=== PATIENT | male | born 1950 | race Caucasian/White ===

== ENCOUNTER 2016-06-07 21:30 | Emergency (ER) | payer OTHER ==
[2016-06-07] MEDS ORDERED: Morphine INJ* 4 MG/ML 1 ML CARPUJECT IV ONE (21:48)
[2016-06-07] MEDS ORDERED: Ondansetron INJ* 2 MG/ML VIAL IV ONE (21:48)
[2016-06-07] MEDS ORDERED: Ondansetron INJ* 2 MG/ML VIAL ONE (21:51)
[2016-06-07] MEDS ORDERED: Morphine INJ* 4 MG/ML 1 ML CARPUJECT ONE (21:51)
[2016-06-07] MEDS ORDERED: ceFAZolin 1 GM in Dextrose (*) 1 GM/50 ML BAG IVPB ONE (22:00)
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
[2016-06-07] MEDS ORDERED: oxyCODONE/Acetamin 5/325 MG* TAB PO ONE (23:07)
[2016-06-07 23:24] VITALS: BP 132/85
== END 2016-06-07 23:22 | disposition home or self-care (01) ==
LOC: ED 21:30
DX: S61.432A Puncture wound without foreign body of left hand, initial encounter (principal); W32.0XXA Accidental handgun discharge, initial encounter; Y93.9 Activity, unspecified; Y92.89 Other specified places as the place of occurrence of the external cause
CPT/HCPCS: 96374; 96375; 99284; A9270-GY; J0690; J2270; J2405

== ENCOUNTER 2019-04-12 15:34 | Emergency (ER) | payer OTHER ==
--- NOTE | 2019-04-12 16:50 | ED ---
Skin Complaint - HPI Summary HPI Summary: This patient is a 68-year-old male with a history of prostate cancer and buttocks abscess to the R side previously drained by Dr. Cai presents to the ED with R sided mild pain to this area. He states last time this occurred it was very large and needed to have bedside surgical drainage. He states as he was having discomfort to this area, he decided to come to the ED for further evaluation and to get it drained. He also endorses a fever last night, however states this also been having a cold and cough. He denies any fevers all day today. Eating and drinking okay. Denies any chest pain or shortness of breath. Denies any body aches. Denies any difficulty with urinating or defecating. No pain with bowel movements, last bowel movement this morning and was normal. No blood in the stool. 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 - History of Current Complaint Chief Complaint: EDRashSkinAbscess Time Seen by Provider: 04/12/19 15:59 Stated Complaint: RECTAL ABSCESS PER PT Hx Obtained From: Patient Onset/Duration: Started Days Ago Timing: Constant Onset Severity: Moderate Current Severity: Moderate Pain Intensity: 1 Pain Scale Used: 0-10 Numeric Skin Location: Other: - right sided perianal region pain Aggravating Symptom(s): Nothing Alleviating Symptom(s): Nothing Associated Signs & Symptoms: Negative - Allergy/Home Medications Allergies/Adverse Reactions: Allergies Allergy/AdvReac Type Severity Reaction Status Date / Time No Known Allergies Allergy Verified 04/12/19 15:43 Home Medications: Home Medications Allopurinol TAB* [Zyloprim 100 MG TAB*] 100 mg PO DAILY 04/12/19 [History Confirmed 04/12/19] PMH/Surg Hx/FS Hx/Imm Hx Previously Healthy: Yes Endocrine/Hematology History: Denies: Hx Diabetes, Hx Thyroid Disease Cardiovascular History: Denies: Hx Congestive Heart Failure, Hx Hypercholesterolemia, Hx Hypertension , Hx Pacemaker/ICD, Hx Peripheral Vascular Disease History: Denies: Hx Renal Disease Musculoskeletal History: Denies: Hx Arthritis, Hx Osteoporosis Sensory History: Denies: Hx Cataracts, Hx Contacts or Glasses, Hx Glaucoma, Hx Hearing Aid Opthamlomology History: Denies: Hx Cataracts, Hx Contacts or Glasses, Hx Glaucoma Neurological History: Denies: Hx Headaches, Hx Seizures, Hx Transient Ischemic Attacks (TIA) Psychiatric History: Denies: Hx Anxiety, Hx Depression, Hx Panic Disorder - Cancer History Cancer Type, Location and Year: PROSTATE - Surgical History Surgery Procedure, Year, and Place: removal of a rectal abscess 2011 - Immunization History Date of Tetanus Vaccine: Unk Date of Influenza Vaccine: None Hx Pertussis Vaccination: No Immunizations Up to Date: Yes Infectious Disease History: No Infectious Disease History: Denies: Traveled Outside the [place] in Last 30 Days - Family History Known Family History: Positive: Hypertension - sister, Diabetes - grandmother Negative: Cardiac Disease - Social History Occupation: Unemployed Lives: With Family Alcohol Use: Weekly Hx Substance Use: No Substance Use Type: Reports: None Smoking Status (MU): Never Smoked Tobacco Review of Systems Negative: Fever, Chills, Fatigue, Skin Diaphoresis Negative: Palpitations, Chest Pain Negative: Shortness Of Breath, Cough Genitourinary: Negative Positive: no symptoms reported, see HPI Negative: Arthralgia, Myalgia Positive: Other - erythematous are to the r side perianal region, with L sided fistula All Other Systems Reviewed And Are Negative: Yes Physical Exam Triage Information Reviewed: Yes Vital Signs On Initial Exam: Initial Vitals Temp Pulse Resp BP Pulse Ox 98.9 F 68 18 179/88 98 04/12/19 15:38 04/12/19 15:38 04/12/19 15:38 04/12/19 15:38 04/12/19 15:38 Vital Signs Reviewed: Yes Appearance: Positive: Well-Appearing, Well-Nourished Skin: Positive: Warm, Skin Color Reflects Adequate Perfusion, Other - see above Eyes: Positive: EOMI, Conjunctiva Clear Neck: Positive: Supple, No Lymphadenopathy Respiratory/Lung Sounds: Positive: Clear to Auscultation, Breath Sounds Present Cardiovascular: Positive: RRR, Pulses are Symmetrical in both Upper and Lower Extremities Musculoskeletal: Positive: Strength/ROM Intact Neurological: Positive: Speech Normal Psychiatric: Positive: Normal, Affect/Mood Appropriate AVPU Assessment: Alert Procedures - Sedation Patient Received Moderate/Deep Sedation with Procedure: No Diagnostics - Vital Signs Vital Signs Temp Pulse Resp BP Pulse Ox 04/12/19 15:38 98.9 F 68 18 179/88 98 - Laboratory Lab Statement: Any lab studies that have been ordered have been reviewed, and results considered in the medical decision making process. Course/Dx - Course Course Of Treatment: Patient is evaluated for right-sided buttock pain. On physical examination, patient appears well. Skin/ exam: L sided large 3cm x 1 cm boggy erythematous area to the perianal region representing a fistula without evidence of infection. Scar tissue to the R side, light pain on palpation with no evidence of boggy, fluctuant or englarged area. States does not have a fistula to this side. There is a painful area to this side which does not extend beyond just around the scar tissue. No pain to the rectum or anus. This likely is an early abscess (d/t history) and the area does appear to be erythematous. However, as there is no fluctuant material, there is no obvious area for I and D. I have encouraged him to call surgery for a follow up. Pt afebrile now. Denies any other complaints. States he does not feel ill otherwise. Will defer labs. He understands to return promptly if symptoms persist or worsen. This may improve well with antibiotics, but may enlarge in the next few days, then requiring I and D. Pt will take bactrim twice daily x 5 days and follow up. - Differential Diagnoses - Skin Complaint Differential Diagnoses: Other - perirectal abscess, fistula, cellulitis - Diagnoses Provider Diagnoses: Perianal abscess Discharge ED - Sign-Out/Discharge Documenting (check all that apply): Patient Departure - Discharge Plan Condition: Stable Disposition: HOME Prescriptions: Sulfamethox/Trimethoprim DS* [Bactrim DS 800/160 TAB*] 1 tab PO BID #10 tab Patient Education Materials: Abscess (ED) Referrals: Kelsey Almonte MD [Primary Care Provider] - Damon Valle MD [Medical Doctor] - Sukh Cai MD [Medical Doctor] - 2 Days (recheck of abscess) Additional Instructions: As discussed, please follow up with surgery. There is nothing quite big enough for me to attempt an I and D If this gets larger, you can always come back to the ED Otherwise, please have a surgery follow up Bactrim twice daily x 5 days I recommend probiotics on the opposite schedule (in the middle of the day) to help prevent secondary infections - Billing Disposition and Condition Condition: STABLE Disposition: Home Images - Images Perineum Male: 1 - area of mild pain and erythema, no fluctuant area - no tracking identified. no pain to the rectum - Attestation Statements Provider Attestation: I was available for consultation for this patient. I did not evaluate the patient or participate in any medical decision making or disposition decisions unless I am specifically named in the chart as having consulted on the patient. If I have consulted on the patient, please see my own ED note on the patient encounter. Warner Reinoso MD
[2019-04-12 16:55] VITALS: BP 151/89
== END 2019-04-12 16:54 | disposition home or self-care (01) ==
LOC: ED 15:34
DX: L02.215 Cutaneous abscess of perineum (principal); Z85.46 Personal history of malignant neoplasm of prostate; Z79.899 Other long term (current) drug therapy
CPT/HCPCS: 10060; 99282